=== PATIENT | male | born 1995 | race Caucasian/White ===

== ENCOUNTER 2020-05-14 20:53 | Emergency (ER) | payer MEDICAID ==
[~2020-05-14] VITALS: Ht 175.3 cm; Wt 127.0 kg
[2020-05-14 21:02] VITALS: BP 140/73
--- NOTE | 2020-05-14 21:05 | NUR ---
TO LOBBY A/W BED AMBULATORY
--- NOTE | 2020-05-14 23:24 | NUR ---
PT AMBULATED TO BED #5
--- NOTE | 2020-05-14 23:40 | NUR ---
24 Y/O MALE CAME TO THE ED WITH TOOTACHE. PAINIS 10/10 SHARP PAIN THAT RADIATES TO NECK, JAW, AND TEMPORAL AREA. DENIES N/V/D; SKIN IS PINK/WARM/DRY; AAOX4 WITH EVEN AND STEADY GAIT; LUNGS CLEAR BL; HR EVEN AND REGULAR; PT DENIES ANY FEVER, CP, SOB, OR COUGH AT THIS TIME; VSS; PATIENT POSITIONED FOR COMFORT; HOB ELEVATED; BEDRAILS UP X2; BED DOWN. ER MD MADE AWARE OF PT STATUS. PMH: HEART MURMUR ALLERGIES: PENICILLIN
[2020-05-14] MEDS ORDERED: HYDROcodone/APAP 5/325 MG 1 TAB TAB PO ONE (23:45)
[2020-05-14] MEDS ORDERED: ONDANSETRON 4 MG ODT PO ONE (23:45)
[2020-05-14] MEDS ORDERED: ACET-8386 PO (23:55)
[2020-05-15 00:12] VITALS: BP 140/73
--- NOTE | 2020-05-15 00:12 | NUR ---
Patient discharged with v/s stable. Written and verbal after care instructions given and explained. Patient alert, oriented and verbalized understanding of instructions. Ambulatory with steady gait. All questions addressed prior to discharge. ID band removed. Patient advised to follow up with PMD. Rx of HYDROCODONE given. Patient educated on indication of medication including possible reaction and side effects. Opportunity to ask questions provided and answered.
== END 2020-05-15 00:12 | disposition home or self-care (01) ==
LOC: MED 20:53
DX: K08.89 Other specified disorders of teeth and supporting structures (principal); R51.9 Headache, unspecified; I51.9 Heart disease, unspecified; Z88.0 Allergy status to penicillin
CPT/HCPCS: 99283; Q0162